=== PATIENT | male | born 1990 | race Caucasian/White ===

== ENCOUNTER 2023-07-09 04:50 | Inpatient (IN) | payer MEDICAID ==
[2023-07-09] VITALS (44 sets, daily range): BP systolic 81–122; BP diastolic 34–86; TEMP 97.7–98.7; O2SAT 91–100
[~2023-07-09] VITALS: Ht 180.3 cm; Wt 71.7 kg
[2023-07-09] MEDS ORDERED: ONDANSETRON HCL/PF 4 MG/2 ML VIAL ONE (05:20)
[2023-07-09] MEDS ORDERED: LORAZEPAM INJ 2 MG/ML VIAL ONE ×2 (05:20→06:16)
[2023-07-09] MEDS: LORAZEPAM INJ 2 MG/ML VIAL IV ONE ×2 (05:22→06:21)
[2023-07-09] MEDS: IV NS 0.9% 1,000 ML BAG IV ONE ×2 (05:22→06:21)
[2023-07-09] MEDS: ONDANSETRON HCL/PF 4 MG/2 ML VIAL IVP ONE (05:23)
[2023-07-09 06:21] LABS: MONOCYTES # (AUTO) 1.5 K/uL (0.1-1.30)
[2023-07-09] MEDS ORDERED: Thiamine 100 MG/ML VIAL ONE (06:25)
[2023-07-09 06:26] LABS: BASOPHILS % (AUTO) 0.2 % (0.0-2.0); LYMPHOCYTES # (AUTO) 1.3 K/uL (0.8-4.8); LYMPHOCYTES % (AUTO) 7.9 % (20.0-44.0); MEAN CORPUSCULAR HEMOGLOBIN 33 PG (26.0-33.0); MEAN CORPUSCULAR HGB CONC 33 g/dl (31.0-36.0); MEAN CORPUSCULAR VOLUME 101 fL (80-96); MONOCYTES % (AUTO) 9.4 % (2.0-12.0); NEUTROPHILS # (AUTO) 13.4 K/uL (1.8-8.9); NEUTROPHILS % (AUTO) 82.5 % (43.0-81.0); PLATELET COUNT (AUTO) 217 K/uL (150-450); RED CELL DISTRIBUTION WIDTH 19.1 % (11.5-15.0); WHITE BLOOD COUNT (AUTO) 16.3 K/uL (4.3-11.0)
[2023-07-09 06:27] LABS: RED BLOOD CELL COUNT(AUTO) 1.87 MIL/uL (4.5-6.0)
[2023-07-09 06:29] LABS: HEMATOCRIT 19 % (39-51); HEMOGLOBIN 6.2 g/dL (13.5-17.5)
[2023-07-09] MEDS: Thiamine 100 MG in IV D5W 50 ML IV SCH (06:32)
[2023-07-09 06:33] LABS: INR 1.91 (0.91-1.10); PARTIAL THROMBOPLASTIN TIME 25.2 SEC (24.3-34.3); PROTHROMBIN TIME 19.4 SECS (9.2-11.1)
[2023-07-09 06:35] LABS: ALBUMIN 2.4 g/dL (3.4-5.0); BILIRUBIN,DIRECT 3.2 mg/dL (0.0-0.2); BILIRUBIN,TOTAL 4.6 mg/dL (0.2-1.0); CALCIUM, SERUM 8.3 mg/dL (8.5-10.1); CREATININE 1.3 mg/dL (0.6-1.3); POTASSIUM 3.1 mmol/L (3.5-5.1); TOTAL PROTEIN, SERUM 6.4 g/dL (6.4-8.2)
[2023-07-09 06:59] LABS: BAND % (MANUAL) 3 % (0.0-5.0); LYMPHOCYTES % (MANUAL) 5 % (16-48); MONOCYTES % (MANUAL) 7 % (0-11.0); NEUTROPHILS % (MANUAL) 83 (42-76); REACTIVE LYMPHOCYTES 1 % (0-0)
[2023-07-09 07:00] LABS: HYPOCHROMASIA 1+; METAMYELOCYTES % 1 % (0-0); PLATELET ESTIMATE ADEQUATE; SMUDGE CELLS FEW
[2023-07-09 07:01] LABS: ANISOCYTOSIS 2+; OVALOCYTES 1+
[2023-07-09] MEDS ORDERED: PANTOPRAZOLE 40 MG VIAL ONE (07:05)
[2023-07-09] MEDS ORDERED: OCTREOTIDE 500 MCG/ML VIAL ONE (07:06)
[2023-07-09] MEDS ORDERED: OCTREOTIDE 100 MCG/ML VIAL ONE (07:09)
[2023-07-09] MEDS: PANTOPRAZOLE 80 MG in IV NS 0.9% 100 ML IV ONE (07:13)
[2023-07-09] MEDS: OCTREOTIDE 50 MCG/ML AMPUL IV ONE (07:13)
[2023-07-09] MEDS: IV PREMIX D5 1/2NS + KCL 1,000 ML IV ONE (07:14)
[2023-07-09] MEDS ORDERED: LORAZEPAM INJ 2 MG/ML VIAL IV PRN (10:30)
[2023-07-09] MEDS ORDERED: MAGNESIUM HYDROXIDE 30 ML UDC PO PRN (10:30)
[2023-07-09] MEDS ORDERED: ACETAMINOPHEN 650 MG/SUPP.RECT RC PRN (10:30)
[2023-07-09] MEDS ORDERED: IOHEXOL-300 100 ML VIAL IV ONE (11:19)
[2023-07-09] MEDS ORDERED: IV NS 0.9% 250 ML IV ONE (11:19)
[2023-07-09 11:43] LABS: ALCOHOL, BLOOD < 3 mg/dL (0-10)
[2023-07-09 11:45] LABS: IRON, SERUM 22 ug/dl (50-175); TOTAL IRON BINDING CAPACITY 97 ug/dl (250-450)
[2023-07-09 12:23] LABS: LACTIC ACID 2.1 mmol/L (0.4-2.0)
[2023-07-09] MEDS: OCTREOTIDE 1,250 MCG in IV NS 0.9% 247.5 ML IV PRN (13:15)
[2023-07-09] MEDS: PHYTONADIONE INJ 10 MG in IV NS 0.9% 50 ML IV ONE (13:16)
[2023-07-09 13:27] LABS: FERRITIN 289 ng/mL (8-388)
[2023-07-09 13:31] LABS: HEMOGLOBIN 5.3 g/dL (13.5-17.5)
[2023-07-09] MEDS: CEFTRIAXONE 2 G in IV D5W 100 ML IV SCH (15:13)
[2023-07-09] MEDS: IV NS 0.9% 1,000 ML IV PRN (15:41)
[2023-07-09] MEDS: SOD FERRIC GLUC 125 MG in IV NS 0.9% 100 ML IV SCH (17:59)
[2023-07-09 19:51] LABS: APPEARANCE,URINE CLEAR (CLEAR); BILIRUBIN,URINE 1+ (NEGATIVE); BLOOD, URINE NEGATIVE Ery/uL (NEGATIVE); COLOR,URINE YELLOW (YELLOW); KETONES,URINE NEGATIVE (NEGATIVE); LEUKOCYTE ESTERASE ,URINE NEGATIVE (NEGATIVE); NITRITE, URINE NEGATIVE (NEGATIVE); PH,URINE 6.5 (5.0-8.0); PROTEIN,URINE NEGATIVE (NEGATIVE); UGLUCOSE NEGATIVE (NEGATIVE)
[2023-07-09 20:01] LABS: HEMOGLOBIN 5.8 g/dL (13.5-17.5)
[2023-07-09 20:13] LABS: ADD URINE CULTURE NO; BACTERIA,URINE None seen /HPF (None Seen); RBC,URINE 0-2 /HPF (0-2); SQUAMOUS EPITHELIAL CELL,UR 0-2 /HPF (None Seen); WBC,URINE 0-2 /HPF (0-3)
[2023-07-09] MEDS ORDERED: NOREPINEPHRINE 8 MG in IV D5W 242 ML IV PRN (20:30)
[2023-07-09] MEDS: PANTOPRAZOLE 40 MG VIAL IV SCH (21:07)
[2023-07-09] MEDS: IV NS 0.9% 250 ML IV PRN (21:43)
[2023-07-10] VITALS (75 sets, daily range): BP systolic 76–151; BP diastolic 48–121; TEMP 96.6–98.6; O2SAT 89–100
[2023-07-10] MEDS: ONDANSETRON HCL/PF 4 MG/2 ML VIAL IVP PRN (02:48)
[2023-07-10 07:57] LABS: BASOPHILS # (AUTO) 0.1 K/uL (0.0-0.2); BASOPHILS % (AUTO) 0.3 % (0.0-2.0); EOSINOPHILS % (AUTO) 0.3 % (0.0-6.0); HEMATOCRIT 21 % (39-51); LYMPHOCYTES # (AUTO) 1.5 K/uL (0.8-4.8); LYMPHOCYTES % (AUTO) 8.8 % (20.0-44.0); MEAN CORPUSCULAR HEMOGLOBIN 31 PG (26.0-33.0); MEAN CORPUSCULAR HGB CONC 34 g/dl (31.0-36.0); MEAN CORPUSCULAR VOLUME 93 fL (80-96); MONOCYTES # (AUTO) 2.8 K/uL (0.1-1.30); NEUTROPHILS # (AUTO) 12.3 K/uL (1.8-8.9); NEUTROPHILS % (AUTO) 73.6 % (43.0-81.0); PLATELET COUNT (AUTO) 123 K/uL (150-450); RED BLOOD CELL COUNT(AUTO) 2.23 MIL/uL (4.5-6.0); RED CELL DISTRIBUTION WIDTH 18.3 % (11.5-15.0); WHITE BLOOD COUNT (AUTO) 16.8 K/uL (4.3-11.0)
[2023-07-10 09:18] LABS: THYROID STIMULATING HORMONE 0.653 uIU/mL (0.358-3.74)
[2023-07-10 09:38] LABS: CALCIUM, SERUM 6.2 mg/dL (8.5-10.1); CREATININE 0.9 mg/dL (0.6-1.3); MAGNESIUM 1.4 mg/dL (1.8-2.4); PHOSPHORUS 3.4 mg/dL (2.5-4.9); POTASSIUM 3.3 mmol/L (3.5-5.1)
[2023-07-10] MEDS: FOLIC ACID 1 MG TABLET PO SCH (09:44)
[2023-07-10] MEDS ORDERED: MIDAZOLAM HCL 2 MG/2ML VIAL ONE ×2 (10:35→10:36)
[2023-07-10] MEDS: LORATADINE 10 MG TABLET PO ONE (12:10)
[2023-07-10] MEDS: diphenhydrAMINE HCL 50 MG/ML VIAL IV ONE ×2 (12:10→15:34)
[2023-07-10] MEDS: Thiamine 100 MG in IV D5W 50 ML IV SCH (12:41)
[2023-07-10] MEDS ORDERED: ANESTHESIA TRAY IN PYXIS 1 EA TRAY MC ONE (13:13)
[2023-07-10 14:16] LABS: HEMOGLOBIN 6.9 g/dL (13.5-17.5)
[2023-07-10 15:06] LABS: D-DIMER 3.3 mg/L(FEU (0.17-0.50); INR 1.6 (0.91-1.10); PARTIAL THROMBOPLASTIN TIME 29.4 SEC (24.3-34.3); PROTHROMBIN TIME 16.4 SECS (9.2-11.1)
[2023-07-10] MEDS: ACETAMINOPHEN 325 MG TABLET PO ONE (15:34)
[2023-07-10 19:30] LABS: HEMOGLOBIN 8.4 g/dL (13.5-17.5)
[2023-07-10 20:51] LABS: RHEUMATOID FACTOR SCREEN NEGATIVE (NEGATIVE)
[2023-07-11] VITALS (21 sets, daily range): BP systolic 97–119; BP diastolic 64–89; TEMP 98–98.6; O2SAT 97–100
[2023-07-11 05:01] LABS: BASOPHILS % (AUTO) 0.3 % (0.0-2.0); EOSINOPHILS # (AUTO) 0.2 K/uL (0.0-0.7); EOSINOPHILS % (AUTO) 1.1 % (0.0-6.0); HEMATOCRIT 22 % (39-51); HEMOGLOBIN 7.3 g/dL (13.5-17.5); LYMPHOCYTES # (AUTO) 2.1 K/uL (0.8-4.8); LYMPHOCYTES % (AUTO) 11.1 % (20.0-44.0); MEAN CORPUSCULAR HEMOGLOBIN 31 PG (26.0-33.0); MEAN CORPUSCULAR HGB CONC 34 g/dl (31.0-36.0); MEAN CORPUSCULAR VOLUME 93 fL (80-96); MONOCYTES # (AUTO) 3.6 K/uL (0.1-1.30); MONOCYTES % (AUTO) 19.4 % (2.0-12.0); NEUTROPHILS # (AUTO) 12.7 K/uL (1.8-8.9); NEUTROPHILS % (AUTO) 68.1 % (43.0-81.0); PLATELET COUNT (AUTO) 122 K/uL (150-450); RED BLOOD CELL COUNT(AUTO) 2.34 MIL/uL (4.5-6.0); RED CELL DISTRIBUTION WIDTH 17.1 % (11.5-15.0); WHITE BLOOD COUNT (AUTO) 18.7 K/uL (4.3-11.0)
[2023-07-11 05:04] LABS: D-DIMER 2.89 mg/L(FEU (0.17-0.50); INR 1.55 (0.91-1.10); PARTIAL THROMBOPLASTIN TIME 31.9 SEC (24.3-34.3)
[2023-07-11 05:18] LABS: CREATININE 0.8 mg/dL (0.6-1.3); MAGNESIUM 1.6 mg/dL (1.8-2.4); PHOSPHORUS 3.2 mg/dL (2.5-4.9); POTASSIUM 3.1 mmol/L (3.5-5.1)
[2023-07-11 05:25] LABS: CALCIUM, SERUM 5.8 mg/dL (8.5-10.1)
[2023-07-11 05:47] LABS: ANISOCYTOSIS 1+; BASOPHILS % (MANUAL) 0 % (0.0-2.0); EOSINOPHILS % (MANUAL) 3 % (0-4); LYMPHOCYTES % (MANUAL) 13 % (16-48); MONOCYTES % (MANUAL) 17 % (0-11.0); NEUTROPHILS % (MANUAL) 67 (42-76); PLATELET ESTIMATE DECREASED
[2023-07-11] MEDS: MAGNESIUM OXIDE 400 MG TABLET PO ONE (09:21)
[2023-07-11] MEDS: POTASSIUM CHLORIDE 20 MEQ TAB.PRT.SR PO SCH (09:34)
[2023-07-11 10:09] LABS: IMMUNOGLOBULIN A, SERUM 323 mg/dL (90-386); IMMUNOGLOBULIN G, SERUM 832 mg/dL (603-1613); IMMUNOGLOBULIN M, SERUM 65 mg/dL (20-172)
[2023-07-11 11:11] LABS: *ANA ANTI-CENTROMERE B AB <0.2 AI (0.0-0.9); *ANA ANTI-DNA(DS) AB, QN <1 IU/mL (0-9); *ANA ANTI-JO-1 <0.2 AI (0.0-0.9); *ANA ANTICHROMATIN ANTIBODY 0.2 AI (0.0-0.9); *ANA RNP ANTIBODIES 0.2 AI (0.0-0.9); *ANA SJOGREN'S ANTI-SS-A <0.2 AI (0.0-0.9); *ANA SJOGREN'S ANTI-SS-B <0.2 AI (0.0-0.9); *ANAANTI-SCLERODERMA-70 AB <0.2 AI (0.0-0.9); *ANASMITH AB <0.2 AI (0.0-0.9)
[2023-07-11] MEDS: CHLORDIAZEPOXIDE HCL 25 MG CAPSULE PO SCH (12:21)
[2023-07-11 14:32] LABS: HEMOGLOBIN 7.6 g/dL (13.5-17.5)
[2023-07-11 23:06] LABS: FOLIC ACID 3.7 ng/mL (>3.0)
[2023-07-12] VITALS: BP 115/79; TEMP 98; O2SAT 100
[2023-07-12 01:12] LABS: AFP, TUMOR MARKER 9.6 ng/mL (0.0-6.9)
[2023-07-12 02:06] LABS: HEPATITIS B SURFACE AB Reactive (.)
[2023-07-12 04:00] VITALS: BP 110/64; TEMP 98; O2SAT 100
[2023-07-12 04:11] LABS: HEPATITIS A AB, TOTAL Positive (Negative)
[2023-07-12 07:28] LABS: BASOPHILS # (AUTO) 0.1 K/uL (0.0-0.2); BASOPHILS % (AUTO) 0.3 % (0.0-2.0); EOSINOPHILS # (AUTO) 0.2 K/uL (0.0-0.7); EOSINOPHILS % (AUTO) 1.4 % (0.0-6.0); HEMATOCRIT 24 % (39-51); HEMOGLOBIN 8.1 g/dL (13.5-17.5); LYMPHOCYTES # (AUTO) 1.5 K/uL (0.8-4.8); LYMPHOCYTES % (AUTO) 8.6 % (20.0-44.0); MEAN CORPUSCULAR HEMOGLOBIN 32 PG (26.0-33.0); MEAN CORPUSCULAR HGB CONC 34 g/dl (31.0-36.0); MEAN CORPUSCULAR VOLUME 95 fL (80-96); MONOCYTES # (AUTO) 3.1 K/uL (0.1-1.30); MONOCYTES % (AUTO) 17.1 % (2.0-12.0); NEUTROPHILS % (AUTO) 72.6 % (43.0-81.0); PLATELET COUNT (AUTO) 144 K/uL (150-450); RED BLOOD CELL COUNT(AUTO) 2.52 MIL/uL (4.5-6.0); RED CELL DISTRIBUTION WIDTH 19.1 % (11.5-15.0); WHITE BLOOD COUNT (AUTO) 17.9 K/uL (4.3-11.0)
[2023-07-12 07:39] LABS: D-DIMER 2.66 mg/L(FEU (0.17-0.50); INR 1.44 (0.91-1.10); PARTIAL THROMBOPLASTIN TIME 32.8 SEC (24.3-34.3); PROTHROMBIN TIME 14.9 SECS (9.2-11.1)
[2023-07-12] MEDS: PANTOPRAZOLE 40 MG TABLET.DR PO SCH (08:40)
[2023-07-12 08:48] VITALS: BP 119/88; TEMP 97.9; O2SAT 100
[2023-07-12 08:51] LABS: CREATININE 0.6 mg/dL (0.6-1.3); MAGNESIUM 1.9 mg/dL (1.8-2.4); PHOSPHORUS 1.8 mg/dL (2.5-4.9)
[2023-07-12 12:00] VITALS: BP 107/74; TEMP 98.1; O2SAT 100
[2023-07-12 13:10] LABS: *SPE A/G RATIO 1.1 (0.7-1.7); *SPE ALBUMIN 2.1 g/dL (2.9-4.4); *SPE ALPHA-1-GLOBULIN 0.2 g/dL (0.0-0.4); *SPE ALPHA-2-GLOBULIN 0.3 g/dL (0.4-1.0); *SPE BETA GLOBULIN 0.8 g/dL (0.7-1.3); *SPE M-SPIKE Not Observed g/dL (Not Observed); *SPE PROTEIN TOTAL 4.1 g/dL (6.0-8.5); *SPEGAMMA GLOBULIN 0.7 g/dL (0.4-1.8)
[2023-07-12] MEDS: K PHOS NEUTRAL 250 MG TABLET PO ONE (16:12)
[2023-07-12 16:20] VITALS: BP 110/75; TEMP 97.8; O2SAT 100
[2023-07-12 17:28] LABS: HEMOGLOBIN 8.4 g/dL (13.5-17.5)
[2023-07-12 20:00] VITALS: BP 120/89; TEMP 98; O2SAT 96
[2023-07-12] MEDS: ACETAMINOPHEN 325 MG TABLET PO PRN (23:01)
[2023-07-13] VITALS: BP 104/74; TEMP 98; O2SAT 97
[2023-07-13 04:00] VITALS: BP 114/75; TEMP 98.7; O2SAT 99
[2023-07-13 06:47] LABS: BASOPHILS # (AUTO) 0.1 K/uL (0.0-0.2); BASOPHILS % (AUTO) 0.6 % (0.0-2.0); EOSINOPHILS # (AUTO) 0.2 K/uL (0.0-0.7); EOSINOPHILS % (AUTO) 1.2 % (0.0-6.0); HEMATOCRIT 26 % (39-51); HEMOGLOBIN 8.7 g/dL (13.5-17.5); LYMPHOCYTES # (AUTO) 1.4 K/uL (0.8-4.8); LYMPHOCYTES % (AUTO) 8.5 % (20.0-44.0); MEAN CORPUSCULAR HEMOGLOBIN 33 PG (26.0-33.0); MEAN CORPUSCULAR HGB CONC 33 g/dl (31.0-36.0); MEAN CORPUSCULAR VOLUME 99 fL (80-96); MONOCYTES # (AUTO) 2.9 K/uL (0.1-1.30); MONOCYTES % (AUTO) 17.5 % (2.0-12.0); NEUTROPHILS # (AUTO) 12.2 K/uL (1.8-8.9); NEUTROPHILS % (AUTO) 72.2 % (43.0-81.0); PLATELET COUNT (AUTO) 134 K/uL (150-450); RED BLOOD CELL COUNT(AUTO) 2.65 MIL/uL (4.5-6.0); RED CELL DISTRIBUTION WIDTH 27.1 % (11.5-15.0); WHITE BLOOD COUNT (AUTO) 16.8 K/uL (4.3-11.0)
[2023-07-13 07:06] LABS: CALCIUM, SERUM 7.3 mg/dL (8.5-10.1); CREATININE 0.7 mg/dL (0.6-1.3); MAGNESIUM 2.1 mg/dL (1.8-2.4); PHOSPHORUS 2.1 mg/dL (2.5-4.9); POTASSIUM 4.2 mmol/L (3.5-5.1)
[2023-07-13 07:33] LABS: D-DIMER 3.06 mg/L(FEU (0.17-0.50); INR 1.51 (0.91-1.10); PROTHROMBIN TIME 15.6 SECS (9.2-11.1)
[2023-07-13 08:00] VITALS: BP 104/79; TEMP 97.9; O2SAT 100
[2023-07-13] MEDS ORDERED: FOLIC ACID 1 MG TABLET PO SCH (09:00)
[2023-07-13 12:00] VITALS: BP 123/72; TEMP 99.3; O2SAT 100
[2023-07-13 12:55] LABS: ANISOCYTOSIS 1+; BAND % (MANUAL) 2 % (0.0-5.0); BASOPHILS % (MANUAL) 0 % (0.0-2.0); EOSINOPHILS % (MANUAL) 2 % (0-4); LYMPHOCYTES % (MANUAL) 11 % (16-48); MONOCYTES % (MANUAL) 16 % (0-11.0); NEUTROPHILS % (MANUAL) 69 (42-76); PLATELET ESTIMATE DECREASED
[2023-07-13] MEDS ORDERED: GADOTERATE MEGLUMINE 10 MMOL/20 ML VIAL IV ONE (14:12)
[2023-07-13] MEDS: K PHOS NEUTRAL 250 MG TABLET PO ONE (15:33)
[2023-07-13 16:00] VITALS: BP 107/80; TEMP 98.4; O2SAT 100
[2023-07-13 20:00] VITALS: BP 102/72; TEMP 98.9; O2SAT 96
[2023-07-14] VITALS: BP 114/90; TEMP 97.7; O2SAT 96
[2023-07-14 04:00] VITALS: BP 114/96; TEMP 97.5; O2SAT 96
[2023-07-14 08:00] VITALS: BP 106/85; TEMP 98.4; O2SAT 96
[2023-07-14 12:00] VITALS: BP 123/82; TEMP 97.9; O2SAT 96
[2023-07-14 13:28] LABS: BASOPHILS # (AUTO) 0.2 K/uL (0.0-0.2); BASOPHILS % (AUTO) 0.9 % (0.0-2.0); EOSINOPHILS # (AUTO) 0.2 K/uL (0.0-0.7); EOSINOPHILS % (AUTO) 0.8 % (0.0-6.0); HEMATOCRIT 27 % (39-51); HEMOGLOBIN 9.2 g/dL (13.5-17.5); LYMPHOCYTES # (AUTO) 1.4 K/uL (0.8-4.8); LYMPHOCYTES % (AUTO) 7.3 % (20.0-44.0); MEAN CORPUSCULAR HEMOGLOBIN 34 PG (26.0-33.0); MEAN CORPUSCULAR HGB CONC 34 g/dl (31.0-36.0); MEAN CORPUSCULAR VOLUME 101 fL (80-96); MONOCYTES # (AUTO) 3.5 K/uL (0.1-1.30); MONOCYTES % (AUTO) 18.2 % (2.0-12.0); NEUTROPHILS # (AUTO) 13.9 K/uL (1.8-8.9); NEUTROPHILS % (AUTO) 72.8 % (43.0-81.0); PLATELET COUNT (AUTO) 136 K/uL (150-450); RED CELL DISTRIBUTION WIDTH 26.5 % (11.5-15.0); WHITE BLOOD COUNT (AUTO) 19.1 K/uL (4.3-11.0)
[2023-07-14] MEDS ORDERED: PANT40TA2 PO (15:01)
[2023-07-14 15:03] LABS: BAND % (MANUAL) 3 % (0.0-5.0); EOSINOPHILS % (MANUAL) 1 % (0-4); LYMPHOCYTES % (MANUAL) 7 % (16-48); MONOCYTES % (MANUAL) 11 % (0-11.0); NEUTROPHILS % (MANUAL) 78 (42-76)
[2023-07-14 15:04] LABS: ANISOCYTOSIS 2+; PLATELET ESTIMATE DECREASED
[2023-07-14] MEDS ORDERED: THIA100T68 PO (15:07)
[2023-07-14] MEDS ORDERED: FOLI0.4T6 PO (15:07)
[2023-07-14 16:00] VITALS: BP 120/92; TEMP 98.4; O2SAT 96
[2023-07-14] MEDS: K PHOS NEUTRAL 250 MG TABLET PO ONE (16:47)
[2023-07-14 20:00] VITALS: BP 120/88; TEMP 98.1; O2SAT 98
[2023-07-15] VITALS: BP 120/88; TEMP 98.3; O2SAT 96
[2023-07-15 04:00] VITALS: BP 119/81; TEMP 98.1; O2SAT 97
[2023-07-15 07:46] LABS: D-DIMER 4.31 mg/L(FEU (0.17-0.50); INR 1.52 (0.91-1.10); PARTIAL THROMBOPLASTIN TIME 30.2 SEC (24.3-34.3); PROTHROMBIN TIME 15.7 SECS (9.2-11.1)
[2023-07-15 08:00] VITALS: BP 115/65; TEMP 98.2; O2SAT 97
[2023-07-15 12:00] VITALS: BP 118/87; TEMP 97.5; O2SAT 96
[2023-07-15 16:00] VITALS: BP 117/86; TEMP 97.5; O2SAT 95
[2023-07-15 20:00] VITALS: BP 115/85; TEMP 98.4; O2SAT 98
[2023-07-16 04:00] VITALS: BP 115/85; TEMP 98.2; O2SAT 100
[2023-07-16 05:03] VITALS: BP 115/86; TEMP 98.2; O2SAT 98
[2023-07-16 08:00] VITALS: BP 108/72; TEMP 96.6; O2SAT 98
[2023-07-16 08:12] LABS: BASOPHILS # (AUTO) 0.1 K/uL (0.0-0.2); BASOPHILS % (AUTO) 0.6 % (0.0-2.0); EOSINOPHILS # (AUTO) 0.2 K/uL (0.0-0.7); EOSINOPHILS % (AUTO) 1.1 % (0.0-6.0); HEMATOCRIT 30 % (39-51); HEMOGLOBIN 9.6 g/dL (13.5-17.5); LYMPHOCYTES % (AUTO) 5.7 % (20.0-44.0); MEAN CORPUSCULAR HEMOGLOBIN 33 PG (26.0-33.0); MEAN CORPUSCULAR HGB CONC 32 g/dl (31.0-36.0); MEAN CORPUSCULAR VOLUME 102 fL (80-96); MONOCYTES # (AUTO) 2.5 K/uL (0.1-1.30); MONOCYTES % (AUTO) 14.2 % (2.0-12.0); NEUTROPHILS % (AUTO) 78.4 % (43.0-81.0); PLATELET COUNT (AUTO) 181 K/uL (150-450); RED BLOOD CELL COUNT(AUTO) 2.92 MIL/uL (4.5-6.0); RED CELL DISTRIBUTION WIDTH 24.2 % (11.5-15.0); WHITE BLOOD COUNT (AUTO) 17.9 K/uL (4.3-11.0)
[2023-07-16 08:26] LABS: INR 1.33 (0.91-1.10); PARTIAL THROMBOPLASTIN TIME 32.4 SEC (24.3-34.3); PROTHROMBIN TIME 13.8 SECS (9.2-11.1)
[2023-07-16 08:28] LABS: D-DIMER 5.31 mg/L(FEU (0.17-0.50)
[2023-07-16 08:58] LABS: CALCIUM, SERUM 7.8 mg/dL (8.5-10.1); CREATININE 0.7 mg/dL (0.6-1.3); POTASSIUM 4.8 mmol/L (3.5-5.1)
[2023-07-16] MEDS ORDERED: ONDA4TAB5 PO (11:58)
== END 2023-07-16 19:57 | disposition home or self-care (01) | DRG 280 ==
LOC: ER 04:57 → ICU 11:25 → TELE1 07-11 13:48 → MEDSG1 07-15 14:33
PROVIDERS: ADMIT Nurse Practitioner Family; ATTEND Nurse Practitioner Acute Care
PROC: 30233N1 Transfusion of Nonautologous Red Blood Cells into Peripheral Vein, Percutaneous Approach (ICD-10-PCS; 2023-07-09)
PROC: 05HB33Z Insertion of Infusion Device into Right Basilic Vein, Percutaneous Approach (ICD-10-PCS; 2023-07-09)
PROC: B54MZZA Ultrasonography of Right Upper Extremity Veins, Guidance (ICD-10-PCS; 2023-07-09)
PROC: 02HV33Z Insertion of Infusion Device into Superior Vena Cava, Percutaneous Approach (ICD-10-PCS; 2023-07-09)
PROC: B548ZZA Ultrasonography of Superior Vena Cava, Guidance (ICD-10-PCS; 2023-07-09)
PROC: 06L38CZ Occlusion of Esophageal Vein with Extraluminal Device, Via Natural or Artificial Opening Endoscopic (ICD-10-PCS; principal; 2023-07-10)
PROC: 30233M1 Transfusion of Nonautologous Plasma Cryoprecipitate into Peripheral Vein, Percutaneous Approach (ICD-10-PCS; 2023-07-10)
PROC: 30233K1 Transfusion of Nonautologous Frozen Plasma into Peripheral Vein, Percutaneous Approach (ICD-10-PCS; 2023-07-10)
DX: K70.31 Alcoholic cirrhosis of liver with ascites (principal); I85.11 Secondary esophageal varices with bleeding; D61.818 Other pancytopenia; K76.6 Portal hypertension; E44.0 Moderate protein-calorie malnutrition; E83.39 Other disorders of phosphorus metabolism; E83.51 Hypocalcemia; D69.59 Other secondary thrombocytopenia; Y90.0 Blood alcohol level of less than 20 mg/100 ml; E88.09 Other disorders of plasma-protein metabolism, not elsewhere classified; D72.829 Elevated white blood cell count, unspecified; F10.239 Alcohol dependence with withdrawal, unspecified; E83.42 Hypomagnesemia; E86.0 Dehydration; Z90.5 Acquired absence of kidney; E87.6 Hypokalemia; R73.9 Hyperglycemia, unspecified; R74.01 Elevation of levels of liver transaminase levels; K31.89 Other diseases of stomach and duodenum; E80.6 Other disorders of bilirubin metabolism; R74.8 Abnormal levels of other serum enzymes; F19.90 Other psychoactive substance use, unspecified, uncomplicated; R53.1 Weakness; Z68.22 Body mass index [BMI] 22.0-22.9, adult; F17.210 Nicotine dependence, cigarettes, uncomplicated; R16.1 Splenomegaly, not elsewhere classified; D50.0 Iron deficiency anemia secondary to blood loss (chronic)
CPT/HCPCS: 36415; 36569; 71045-TC; 74183; 76770-TC; 80048-TC; 80076-TC; 81001; 82105; 82140-TC; 82378; 82607-TC; 82728-TC; 82784; 83540-TC; 83605-TC; 83690-TC; 83735-TC; 84100-TC; 84155; 84165; 84443-TC; 85025-TC; 85027-TC; 85396; 85730-TC; 86140-TC; 86225; 86235; 86301; 86334; 86431-TC; 86706; 86709-TC; 86803; 86850-TC; 87040-TC; 87081-TC; 87086-TC; 87340; 93970-TC; 97110-TC; 97116-TC; 97530-TC; A4223; A6403; A9575; C9113; G0378; G0480; J0696; J1200; J2060; J2250; J2354; J2405; J2704; J2916; J3411; J3430; J3490; J7030; J7050; J7060; P9012; P9016; P9017; Q9967

== ENCOUNTER 2023-07-19 13:42 | Inpatient (IN) | payer MEDICAID ==
[~2023-07-19] VITALS: Ht 182.9 cm; Wt 78.0 kg
[~2023-07-19 13:42] MED LIST: FOLI0.4T6 PO; ONDA4TAB5 PO; PANT40TA2 PO; THIA100T68 PO
[2023-07-19 14:22] LABS: BASOPHILS # (AUTO) 0.1 K/uL (0.0-0.2); BASOPHILS % (AUTO) 0.5 % (0.0-2.0); EOSINOPHILS # (AUTO) 0.1 K/uL (0.0-0.7); EOSINOPHILS % (AUTO) 0.6 % (0.0-6.0); HEMATOCRIT 31 % (39-51); HEMOGLOBIN 9.8 g/dL (13.5-17.5); LYMPHOCYTES # (AUTO) 0.7 K/uL (0.8-4.8); LYMPHOCYTES % (AUTO) 4.2 % (20.0-44.0); MEAN CORPUSCULAR HEMOGLOBIN 32 PG (26.0-33.0); MEAN CORPUSCULAR HGB CONC 32 g/dl (31.0-36.0); MEAN CORPUSCULAR VOLUME 100 fL (80-96); MONOCYTES # (AUTO) 1.4 K/uL (0.1-1.30); MONOCYTES % (AUTO) 8.1 % (2.0-12.0); NEUTROPHILS # (AUTO) 15.1 K/uL (1.8-8.9); NEUTROPHILS % (AUTO) 86.6 % (43.0-81.0); PLATELET COUNT (AUTO) 221 K/uL (150-450); RED BLOOD CELL COUNT(AUTO) 3.09 MIL/uL (4.5-6.0); RED CELL DISTRIBUTION WIDTH 22.2 % (11.5-15.0); WHITE BLOOD COUNT (AUTO) 17.4 K/uL (4.3-11.0)
[2023-07-19 14:32] LABS: CALCIUM, SERUM 8.3 mg/dL (8.5-10.1)
[2023-07-19 14:34] LABS: INR 1.41 (0.91-1.10); PARTIAL THROMBOPLASTIN TIME 23.2 SEC (24.3-34.3); PROTHROMBIN TIME 14.3 SECS (9.2-11.1)
[2023-07-19 14:46] LABS: ALBUMIN 2.2 g/dL (3.4-5.0); BILIRUBIN,TOTAL 2.8 mg/dL (0.2-1.0); TOTAL PROTEIN, SERUM 7.1 g/dL (6.4-8.2)
[2023-07-19] MEDS ORDERED: THIA100T74 PO (15:26)
[2023-07-19] MEDS ORDERED: ONDA-97 PO (15:26)
[2023-07-19] MEDS ORDERED: PANT40TA49 PO (15:26)
[2023-07-19] MEDS ORDERED: FOLI0.4T6 PO (15:26)
[2023-07-19] MEDS: ALBUMIN 25% 12.5 GM/50 ML BOTTLE IV ONE (16:36)
[2023-07-19 20:00] VITALS: BP 116/89; TEMP 97.5; O2SAT 93
[2023-07-19 20:54] LABS: PROTEIN, BODY FLUID 0.2 G/DL
[2023-07-19] MEDS ORDERED: Z GUARD REMEDY 4 OZ OINT TP PRN (21:00)
[2023-07-19] MEDS ORDERED: ONDANSETRON HCL/PF 4 MG/2 ML VIAL IVP PRN (21:00)
[2023-07-19] MEDS: PROPRANOLOL HCL 10 MG TABLET PO SCH (21:25)
[2023-07-19] MEDS: THIAMINE HCL 100 MG TABLET PO SCH (21:25)
[2023-07-19 21:39] LABS: APPEARANCE,SPUN,BODY FLUID CLEAR (CLEAR); TOTAL VOLUME,BODY FLUID 1100 mL; WBC, BODY FLUID 44 /cu. mm. (0-200)
[2023-07-19 22:11] LABS: MACROPHAGES, BODY FLUID 49; MONOCYTES,BODY FLUID 8 %; POLYNUCLEAR, BODY FLUID 12 % (0-25)
[2023-07-20] VITALS (8 sets, daily range): BP systolic 93–115; BP diastolic 64–75; TEMP 98.1–209.8; O2SAT 92–100
[2023-07-20] MEDS: IV NS 0.9% 1,000 ML IV PRN (04:35)
[2023-07-20 07:01] LABS: BASOPHILS # (AUTO) 0.1 K/uL (0.0-0.2); BASOPHILS % (AUTO) 0.8 % (0.0-2.0); EOSINOPHILS # (AUTO) 0.2 K/uL (0.0-0.7); EOSINOPHILS % (AUTO) 1.2 % (0.0-6.0); HEMATOCRIT 25 % (39-51); HEMOGLOBIN 8.2 g/dL (13.5-17.5); LYMPHOCYTES % (AUTO) 7.7 % (20.0-44.0); MEAN CORPUSCULAR HEMOGLOBIN 33 PG (26.0-33.0); MEAN CORPUSCULAR HGB CONC 33 g/dl (31.0-36.0); MEAN CORPUSCULAR VOLUME 100 fL (80-96); MONOCYTES # (AUTO) 1.5 K/uL (0.1-1.30); MONOCYTES % (AUTO) 11.8 % (2.0-12.0); NEUTROPHILS # (AUTO) 10.2 K/uL (1.8-8.9); NEUTROPHILS % (AUTO) 78.5 % (43.0-81.0); PLATELET COUNT (AUTO) 150 K/uL (150-450); RED CELL DISTRIBUTION WIDTH 21.3 % (11.5-15.0)
[2023-07-20 07:19] LABS: TOTAL PROTEIN,PERITONEAL FLUID 5.72
[2023-07-20] MEDS: PANTOPRAZOLE 40 MG TABLET.DR PO SCH (08:16)
[2023-07-20 09:43] LABS: ALBUMIN 2.2 g/dL (3.4-5.0); BILIRUBIN,TOTAL 2.1 mg/dL (0.2-1.0); CALCIUM, SERUM 8.2 mg/dL (8.5-10.1); CREATININE 0.8 mg/dL (0.6-1.3); MAGNESIUM 1.8 mg/dL (1.8-2.4); PHOSPHORUS 3.3 mg/dL (2.5-4.9); TOTAL PROTEIN, SERUM 5.8 g/dL (6.4-8.2)
[2023-07-20] MEDS: ACETAMINOPHEN 325 MG TABLET PO PRN (17:55)
[2023-07-21] VITALS (8 sets, daily range): BP systolic 86–109; BP diastolic 64–86; TEMP 97.9–98.7; O2SAT 96–98
[2023-07-21 07:07] LABS: BASOPHILS # (AUTO) 0.1 K/uL (0.0-0.2); EOSINOPHILS # (AUTO) 0.2 K/uL (0.0-0.7); EOSINOPHILS % (AUTO) 1.1 % (0.0-6.0); HEMATOCRIT 30 % (39-51); HEMOGLOBIN 9.5 g/dL (13.5-17.5); LYMPHOCYTES # (AUTO) 1.1 K/uL (0.8-4.8); LYMPHOCYTES % (AUTO) 7.7 % (20.0-44.0); MEAN CORPUSCULAR HEMOGLOBIN 32 PG (26.0-33.0); MEAN CORPUSCULAR HGB CONC 32 g/dl (31.0-36.0); MEAN CORPUSCULAR VOLUME 102 fL (80-96); MONOCYTES # (AUTO) 1.7 K/uL (0.1-1.30); MONOCYTES % (AUTO) 11.7 % (2.0-12.0); NEUTROPHILS # (AUTO) 11.2 K/uL (1.8-8.9); NEUTROPHILS % (AUTO) 78.5 % (43.0-81.0); PLATELET COUNT (AUTO) 174 K/uL (150-450); RED BLOOD CELL COUNT(AUTO) 2.93 MIL/uL (4.5-6.0); RED CELL DISTRIBUTION WIDTH 21.3 % (11.5-15.0); WHITE BLOOD COUNT (AUTO) 14.3 K/uL (4.3-11.0)
[2023-07-21 09:40] LABS: ALBUMIN 2.2 g/dL (3.4-5.0); BILIRUBIN,TOTAL 2.1 mg/dL (0.2-1.0); CALCIUM, SERUM 8.2 mg/dL (8.5-10.1); CREATININE 0.8 mg/dL (0.6-1.3); MAGNESIUM 1.8 mg/dL (1.8-2.4); PHOSPHORUS 3.3 mg/dL (2.5-4.9)
[2023-07-21 09:41] LABS: TOTAL PROTEIN, SERUM 5.8 g/dL (6.4-8.2)
[2023-07-21] MEDS: RIFAXIMIN 550 MG TABLET PO SCH (09:48)
[2023-07-21] MEDS: BUMETANIDE INJ 0.25 MG/ML VIAL IV ONE (09:48)
[2023-07-21] MEDS: FOLIC ACID 1 MG TABLET PO SCH (12:54)
[2023-07-21] MEDS: MULTIVITAMINS,THERAGRAN 1 UDTAB TABLET PO SCH (12:54)
[2023-07-21] MEDS: LACTULOSE 10 G/15 ML UDC (PYXIS) PO SCH (13:31)
[2023-07-21] MEDS: ALBUMIN 25% 25 GM in PREMIX 1 EA IV ONE ×2 (16:25→17:42)
[2023-07-22] VITALS (7 sets, daily range): BP systolic 102–112; BP diastolic 61–74; TEMP 98.3–99.5; O2SAT 97–98
[2023-07-22 06:34] LABS: BASOPHILS # (AUTO) 0.2 K/uL (0.0-0.2); BASOPHILS % (AUTO) 1.3 % (0.0-2.0); EOSINOPHILS # (AUTO) 0.2 K/uL (0.0-0.7); EOSINOPHILS % (AUTO) 1.4 % (0.0-6.0); HEMATOCRIT 26 % (39-51); HEMOGLOBIN 8.5 g/dL (13.5-17.5); LYMPHOCYTES # (AUTO) 1.1 K/uL (0.8-4.8); MEAN CORPUSCULAR HEMOGLOBIN 32 PG (26.0-33.0); MEAN CORPUSCULAR HGB CONC 33 g/dl (31.0-36.0); MEAN CORPUSCULAR VOLUME 99 fL (80-96); MONOCYTES # (AUTO) 1.7 K/uL (0.1-1.30); NEUTROPHILS # (AUTO) 10.6 K/uL (1.8-8.9); NEUTROPHILS % (AUTO) 77.3 % (43.0-81.0); PLATELET COUNT (AUTO) 135 K/uL (150-450); RED BLOOD CELL COUNT(AUTO) 2.64 MIL/uL (4.5-6.0); RED CELL DISTRIBUTION WIDTH 20.3 % (11.5-15.0); WHITE BLOOD COUNT (AUTO) 13.8 K/uL (4.3-11.0)
[2023-07-22 06:58] LABS: ALBUMIN 2.2 g/dL (3.4-5.0); BILIRUBIN,TOTAL 1.7 mg/dL (0.2-1.0); CALCIUM, SERUM 7.2 mg/dL (8.5-10.1); CREATININE 0.9 mg/dL (0.6-1.3); MAGNESIUM 1.6 mg/dL (1.8-2.4); PHOSPHORUS 3.5 mg/dL (2.5-4.9); POTASSIUM 4.2 mmol/L (3.5-5.1); TOTAL PROTEIN, SERUM 5.7 g/dL (6.4-8.2)
[2023-07-22] MEDS: FUROSEMIDE 40 MG TABLET PO SCH (08:43)
[2023-07-22] MEDS: MAGNESIUM OXIDE 400 MG TABLET PO ONE (10:46)
[2023-07-22] MEDS: CEFTRIAXONE 2 G in IV D5W 100 ML IV SCH (12:18)
[2023-07-23 06:11] LABS: BASOPHILS # (AUTO) 0.3 K/uL (0.0-0.2); BASOPHILS % (AUTO) 2.1 % (0.0-2.0); EOSINOPHILS # (AUTO) 0.3 K/uL (0.0-0.7); EOSINOPHILS % (AUTO) 1.9 % (0.0-6.0); HEMATOCRIT 30 % (39-51); HEMOGLOBIN 9.6 g/dL (13.5-17.5); LYMPHOCYTES # (AUTO) 1.1 K/uL (0.8-4.8); MEAN CORPUSCULAR HEMOGLOBIN 33 PG (26.0-33.0); MEAN CORPUSCULAR HGB CONC 32 g/dl (31.0-36.0); MEAN CORPUSCULAR VOLUME 101 fL (80-96); MONOCYTES # (AUTO) 1.4 K/uL (0.1-1.30); NEUTROPHILS # (AUTO) 10.8 K/uL (1.8-8.9); PLATELET COUNT (AUTO) 143 K/uL (150-450); RED BLOOD CELL COUNT(AUTO) 2.95 MIL/uL (4.5-6.0); RED CELL DISTRIBUTION WIDTH 21.1 % (11.5-15.0); WHITE BLOOD COUNT (AUTO) 13.8 K/uL (4.3-11.0)
[2023-07-23 06:53] LABS: ALBUMIN 2.3 g/dL (3.4-5.0); BILIRUBIN,TOTAL 1.9 mg/dL (0.2-1.0); CALCIUM, SERUM 8.4 mg/dL (8.5-10.1); CREATININE 0.9 mg/dL (0.6-1.3); MAGNESIUM 1.8 mg/dL (1.8-2.4); PHOSPHORUS 3.4 mg/dL (2.5-4.9); TOTAL PROTEIN, SERUM 6.4 g/dL (6.4-8.2)
[2023-07-23 07:00] VITALS: BP 109/82; TEMP 98.6; O2SAT 97
[2023-07-23 16:00] VITALS: BP 113/73; TEMP 97.9; O2SAT 100
[2023-07-23 20:00] VITALS: BP 111/78; TEMP 98.2; O2SAT 95
[2023-07-24 06:24] LABS: BASOPHILS # (AUTO) 0.2 K/uL (0.0-0.2); BASOPHILS % (AUTO) 1.3 % (0.0-2.0); EOSINOPHILS # (AUTO) 0.2 K/uL (0.0-0.7); EOSINOPHILS % (AUTO) 1.5 % (0.0-6.0); HEMATOCRIT 28 % (39-51); HEMOGLOBIN 9.2 g/dL (13.5-17.5); LYMPHOCYTES % (AUTO) 6.8 % (20.0-44.0); MEAN CORPUSCULAR HEMOGLOBIN 32 PG (26.0-33.0); MEAN CORPUSCULAR HGB CONC 33 g/dl (31.0-36.0); MEAN CORPUSCULAR VOLUME 98 fL (80-96); MONOCYTES # (AUTO) 1.7 K/uL (0.1-1.30); MONOCYTES % (AUTO) 11.7 % (2.0-12.0); NEUTROPHILS # (AUTO) 11.6 K/uL (1.8-8.9); NEUTROPHILS % (AUTO) 78.7 % (43.0-81.0); PLATELET COUNT (AUTO) 147 K/uL (150-450); RED BLOOD CELL COUNT(AUTO) 2.83 MIL/uL (4.5-6.0); RED CELL DISTRIBUTION WIDTH 19.8 % (11.5-15.0); WHITE BLOOD COUNT (AUTO) 14.8 K/uL (4.3-11.0)
[2023-07-24 07:00] VITALS: BP 105/70; TEMP 98.8; O2SAT 99
[2023-07-24 07:49] LABS: ALBUMIN 2.1 g/dL (3.4-5.0); BILIRUBIN,TOTAL 1.6 mg/dL (0.2-1.0); CALCIUM, SERUM 7.3 mg/dL (8.5-10.1); CREATININE 0.9 mg/dL (0.6-1.3); MAGNESIUM 1.5 mg/dL (1.8-2.4); PHOSPHORUS 3.8 mg/dL (2.5-4.9); POTASSIUM 3.7 mmol/L (3.5-5.1); TOTAL PROTEIN, SERUM 5.9 g/dL (6.4-8.2)
[2023-07-24] MEDS: SPIRONOLACTONE 25 MG TABLET PO SCH (08:39)
[2023-07-24] MEDS: MAGNESIUM OXIDE 400 MG TABLET PO ONE (09:12)
[2023-07-24 16:00] VITALS: BP 105/78; TEMP 100; O2SAT 98
[2023-07-24 20:00] VITALS: BP 105/75; TEMP 98.6; O2SAT 96
[2023-07-24 21:22] VITALS: BP 105/75; TEMP 98.6; O2SAT 96
[2023-07-25 08:00] VITALS: BP 101/69; TEMP 98.1; O2SAT 99
[2023-07-25 16:00] VITALS: BP 101/65; TEMP 97.7; O2SAT 95
[2023-07-25 20:00] VITALS: BP 111/75; TEMP 98.8; O2SAT 96
[2023-07-26 08:00] VITALS: BP 105/84; TEMP 98.1; O2SAT 98
[2023-07-26 16:00] VITALS: BP 103/75; TEMP 98.1; O2SAT 98
[2023-07-26 20:00] VITALS: BP 102/73; TEMP 99; O2SAT 98
[2023-07-27 00:41] VITALS: BP 85/57
[2023-07-27 04:00] VITALS: BP 100/69; TEMP 98.4; O2SAT 96
[2023-07-27 07:00] VITALS: BP 102/75; TEMP 99.4; O2SAT 100
[2023-07-27 07:10] LABS: BASOPHILS # (AUTO) 0.2 K/uL (0.0-0.2); BASOPHILS % (AUTO) 1.1 % (0.0-2.0); EOSINOPHILS # (AUTO) 0.3 K/uL (0.0-0.7); HEMATOCRIT 27 % (39-51); HEMOGLOBIN 8.7 g/dL (13.5-17.5); LYMPHOCYTES # (AUTO) 1.4 K/uL (0.8-4.8); LYMPHOCYTES % (AUTO) 10.2 % (20.0-44.0); MEAN CORPUSCULAR HEMOGLOBIN 32 PG (26.0-33.0); MEAN CORPUSCULAR HGB CONC 33 g/dl (31.0-36.0); MEAN CORPUSCULAR VOLUME 98 fL (80-96); MONOCYTES # (AUTO) 1.6 K/uL (0.1-1.30); MONOCYTES % (AUTO) 11.8 % (2.0-12.0); NEUTROPHILS # (AUTO) 10.4 K/uL (1.8-8.9); NEUTROPHILS % (AUTO) 74.9 % (43.0-81.0); PLATELET COUNT (AUTO) 138 K/uL (150-450); RED BLOOD CELL COUNT(AUTO) 2.71 MIL/uL (4.5-6.0); WHITE BLOOD COUNT (AUTO) 13.9 K/uL (4.3-11.0)
[2023-07-27 08:21] LABS: CALCIUM, SERUM 7.8 mg/dL (8.5-10.1); MAGNESIUM 1.7 mg/dL (1.8-2.4); PHOSPHORUS 3.3 mg/dL (2.5-4.9); POTASSIUM 3.4 mmol/L (3.5-5.1)
[2023-07-27 16:00] VITALS: BP 102/90; TEMP 99.7; O2SAT 100
[2023-07-27 20:00] VITALS: BP 116/80; TEMP 98.5; O2SAT 97
[2023-07-28 06:54] LABS: BASOPHILS # (AUTO) 0.1 K/uL (0.0-0.2); BASOPHILS % (AUTO) 0.7 % (0.0-2.0); EOSINOPHILS # (AUTO) 0.3 K/uL (0.0-0.7); EOSINOPHILS % (AUTO) 1.5 % (0.0-6.0); HEMATOCRIT 28 % (39-51); HEMOGLOBIN 9.2 g/dL (13.5-17.5); LYMPHOCYTES # (AUTO) 1.4 K/uL (0.8-4.8); LYMPHOCYTES % (AUTO) 7.8 % (20.0-44.0); MEAN CORPUSCULAR HEMOGLOBIN 32 PG (26.0-33.0); MEAN CORPUSCULAR HGB CONC 33 g/dl (31.0-36.0); MEAN CORPUSCULAR VOLUME 96 fL (80-96); MONOCYTES # (AUTO) 2.3 K/uL (0.1-1.30); MONOCYTES % (AUTO) 13.1 % (2.0-12.0); NEUTROPHILS # (AUTO) 13.7 K/uL (1.8-8.9); NEUTROPHILS % (AUTO) 76.9 % (43.0-81.0); PLATELET COUNT (AUTO) 165 K/uL (150-450); RED BLOOD CELL COUNT(AUTO) 2.89 MIL/uL (4.5-6.0); RED CELL DISTRIBUTION WIDTH 18.4 % (11.5-15.0); WHITE BLOOD COUNT (AUTO) 17.9 K/uL (4.3-11.0)
[2023-07-28 07:05] LABS: CALCIUM, SERUM 8.2 mg/dL (8.5-10.1); MAGNESIUM 1.7 mg/dL (1.8-2.4); PHOSPHORUS 3.6 mg/dL (2.5-4.9); POTASSIUM 3.7 mmol/L (3.5-5.1)
[2023-07-28 07:30] VITALS: BP 115/90; TEMP 99.1; O2SAT 98
[2023-07-28] MEDS: SPIRONOLACTONE 25 MG TABLET PO SCH (08:26)
[2023-07-28] MEDS: MAGNESIUM OXIDE 400 MG TABLET PO ONE (10:58)
[2023-07-28 15:40] LABS: PROTEIN, BODY FLUID 0.4 G/DL
[2023-07-28 16:00] VITALS: BP 104/59; TEMP 99.7; O2SAT 98
[2023-07-28 17:50] LABS: TOTAL VOLUME,BODY FLUID 5328 mL
[2023-07-28 18:40] LABS: WBC, BODY FLUID 112 /cu. mm. (0-200)
[2023-07-28 19:33] LABS: MACROPHAGES, BODY FLUID 62; POLYNUCLEAR, BODY FLUID 7 % (0-25)
[2023-07-28 19:41] LABS: APPEARANCE,SPUN,BODY FLUID HAZY (CLEAR)
[2023-07-28 20:00] VITALS: BP 107/74; TEMP 98; O2SAT 97
[2023-07-29 07:10] LABS: BASOPHILS # (AUTO) 0.1 K/uL (0.0-0.2); BASOPHILS % (AUTO) 0.6 % (0.0-2.0); EOSINOPHILS # (AUTO) 0.3 K/uL (0.0-0.7); HEMATOCRIT 27 % (39-51); HEMOGLOBIN 9.1 g/dL (13.5-17.5); LYMPHOCYTES # (AUTO) 1.3 K/uL (0.8-4.8); LYMPHOCYTES % (AUTO) 8.4 % (20.0-44.0); MEAN CORPUSCULAR HEMOGLOBIN 32 PG (26.0-33.0); MEAN CORPUSCULAR HGB CONC 33 g/dl (31.0-36.0); MEAN CORPUSCULAR VOLUME 95 fL (80-96); NEUTROPHILS # (AUTO) 11.5 K/uL (1.8-8.9); PLATELET COUNT (AUTO) 155 K/uL (150-450); RED BLOOD CELL COUNT(AUTO) 2.86 MIL/uL (4.5-6.0); RED CELL DISTRIBUTION WIDTH 18.5 % (11.5-15.0); WHITE BLOOD COUNT (AUTO) 15.2 K/uL (4.3-11.0)
[2023-07-29 07:52] LABS: CALCIUM, SERUM 7.9 mg/dL (8.5-10.1); MAGNESIUM 1.7 mg/dL (1.8-2.4); PHOSPHORUS 3.7 mg/dL (2.5-4.9); POTASSIUM 3.7 mmol/L (3.5-5.1)
[2023-07-29 08:00] VITALS: BP 104/75; TEMP 98.8; O2SAT 99
[2023-07-29 08:12] VITALS: BP 104/71
[2023-07-29] MEDS: MAGNESIUM OXIDE 400 MG TABLET PO ONE (11:46)
== END 2023-07-29 15:00 | disposition left against medical advice (07) | DRG 280 ==
LOC: ER 13:46 → MED 18:07 → TELE 07-20 00:14 → MED 07-22
PROVIDERS: ADMIT Nurse Practitioner Acute Care; ATTEND Student in an Organized Health Care Education/Training Program
PROC: 0W9G3ZZ Drainage of Peritoneal Cavity, Percutaneous Approach (ICD-10-PCS; principal; 2023-07-19)
PROC: 0W9G3ZZ Drainage of Peritoneal Cavity, Percutaneous Approach (ICD-10-PCS; 2023-07-21)
PROC: 0W9G3ZZ Drainage of Peritoneal Cavity, Percutaneous Approach (ICD-10-PCS; 2023-07-26)
PROC: 0W9G3ZZ Drainage of Peritoneal Cavity, Percutaneous Approach (ICD-10-PCS; 2023-07-28)
DX: K70.11 Alcoholic hepatitis with ascites (principal); I50.43 Acute on chronic combined systolic (congestive) and diastolic (congestive) heart failure; D68.9 Coagulation defect, unspecified; E44.0 Moderate protein-calorie malnutrition; I85.10 Secondary esophageal varices without bleeding; E87.1 Hypo-osmolality and hyponatremia; E83.51 Hypocalcemia; E88.09 Other disorders of plasma-protein metabolism, not elsewhere classified; K76.6 Portal hypertension; E83.42 Hypomagnesemia; Z87.891 Personal history of nicotine dependence; R53.1 Weakness; D53.9 Nutritional anemia, unspecified; D72.829 Elevated white blood cell count, unspecified; K59.00 Constipation, unspecified; Z68.23 Body mass index [BMI] 23.0-23.9, adult; Z90.5 Acquired absence of kidney; I08.1 Rheumatic disorders of both mitral and tricuspid valves; F10.20 Alcohol dependence, uncomplicated
CPT/HCPCS: 36415; 49083; 71045-TC; 76705-TC; 80048-TC; 80053-TC; 80076-TC; 82040-TC; 82140-TC; 83690-TC; 83735-TC; 84100-TC; 85025-TC; 85730-TC; 87040-TC; 87186-TC; 88108-TC; 88305-TC; 88312-TC; 89051-TC; 93307-TC; 94762-TC; 94799-TC; 97110-TC; 97116-TC; 97530-TC; A4216; A4223; G0378; J0696; J3490; J7030; J7050; J7060; J7120; P9047